=== PATIENT | female | born 1970 | race Caucasian/White ===

== ENCOUNTER → 2020-01-20 10:21 | Outpatient (CLI) | payer BC, SELFPAY ==
--- NOTE | ~2020-01-20 | XR_ITS ---
EXAMINATION: XR chest 2V 01/20/2020 10:37 INDICATION: Cough PROCEDURE: 2 view chest COMPARISON: Comparison to multiple prior studies sequentially, with oldest reviewed study dated . FINDINGS: The lungs are clear. The cardiomediastinal silhouette is within normal limits. There are no pleural effusions. There is no pneumothorax suspected. The lungs are hyperinflated which is cons istent with, but not diagnostic of chronic obstructive pulmonary disease. IMPRESSION: 1: NO ACUTE CARDIOPULMONARY DISEASE. Reviewed, dictated and finalized at location A.
== END ==
PROVIDERS: PCP Family Medicine; Visit Provider Family Medicine
DX: R05 Cough (principal)
CPT/HCPCS: 71046

== ENCOUNTER 2020-03-30 11:48 | Outpatient (CLI) | payer BC, SELFPAY ==
--- NOTE | ~2020-03-30 | CT_ITS ---
EXAMINATION: CT sinus wo con DATE: 03/30/2020 12:39 INDICATION: Chronic congestion. Chronic sinusitis. Chronic sinus infections. TECHNIQUE: Computed tomography (CT) of the paranasal sinuses was performed without contrast. Iterativ e reconstruction technique was employed. Exam dose: 253.85 mGy-cm total exam DLP. COMPARISON: 12/26/2012 CT sinuses FINDINGS: There is leftward bowing of the nasal septum. The nasal turbinates are prominent in size bilaterally. There is intralamellar cell of both middle na demetria turbinates. There are 2 small mucous retention cysts or polyps along the inferior lateral wall of the left maxill sung antrum. The paranasal sinuses otherwise are normally developed and aerated. The ostiomeatal units are patent. There is postoperative change from surgical resection of the uncina te processes bilaterally, bilateral nasal antral windows. The mastoid air cells are normally developed and aerated bilaterally. IMPRESSION: Status post surgical resection of the uncinate processes bilaterally with associated danita al antral windows Small mucous retention cysts or polyps of left maxillary sinus Interlamellar cell of both middle nasal turbinates Reviewed, dictated and finalized at Location A. Reviewed, dictated and finalized at location A. IMPRESSION: Status post surgical resection of the uncinate processes bilateral ly with associated nasal antral windows Small mucous retention cysts or polyps of left maxillary sinus Interlamellar cell of both middle nasal turbinates
== END 2020-03-30 11:49 | disposition home or self-care (01) ==
PROVIDERS: PCP Family Medicine; Visit Provider Otolaryngology
DX: J32.9 Chronic sinusitis, unspecified (principal); K11.6 Mucocele of salivary gland
CPT/HCPCS: 70486

== ENCOUNTER → 2020-05-21 12:15 | Outpatient (CLI) | payer BC, SELFPAY ==
--- NOTE | ~2020-05-21 | XR_ITS ---
XR femur RT min 2V DATE: 05/21/2020 12:52 INDICATION: Right thigh pain TECHNIQUE: AP and lateral views of right femur COMPARISON: None FINDINGS: No fracture or dislocation, periosteal reaction or bone destruction is detected. Normal ali gnment at the right hip and knee joints. IMPRESSION: Negative Reviewed, dictated and finalized at location B. IMPRESSION: Negative
--- NOTE | ~2020-05-21 | XR_ITS ---
EXAMINATION: XR hip RT min 2V DATE: 05/21/2020 12:52 INDICATION: Right hip pain. TECHNIQUE: 2 views of right hip were obtained. COMPARISON: None. FINDINGS: Bone alignment is normal. No fracture. Right hip joint space is normal. IMPRESSION: 1. Normal right hip. Reviewed, dictated and finalized at location A. IMPRESSION: 1. Normal right hip.
== END ==
PROVIDERS: PCP Family Medicine; Visit Provider Family Medicine
DX: M25.551 Pain in right hip (principal); M79.651 Pain in right thigh
CPT/HCPCS: 73502; 73552

== ENCOUNTER → 2020-12-31 09:23 | Outpatient (CLI) | payer BC, SELFPAY ==
--- NOTE | ~2020-12-31 | MM_ITS ---
EXAMINATION: MM screening richard BI w brenda HISTORY: Screening TECHNIQUE: Craniocaudal and mediolateral oblique 3-D tomosynthesis images were obtained and synthetic 2-D images were generated. CAD analysis was submitted and interpreted. COMPARISON: Comparison to multiple prior studies sequentially, with oldest reviewed study dated 07/31. BREAST PARENCHYMAL COMPOSITION: The breasts are heterogeneously dense, which may obscure small masses . FINDINGS: There is no evidence of suspicious mass, calcification, or architectural distortion to sugg est malignancy in either breast. There has been no suspicious interval change. IMPRESSION: 1. No mammographic evidence of malignancy. 2. Recommend routine screening mammography in one year. BI-RADS Category 1: Negative Reviewed, dictated and finalized at location A. EMASON APPRENTICE
== END ==
PROVIDERS: PCP Family Medicine; Visit Provider Family Medicine
DX: Z12.31 Encounter for screening mammogram for malignant neoplasm of breast (principal)
CPT/HCPCS: 77063; 77067

== ENCOUNTER → 2023-02-22 08:16 | Outpatient (CLI) | payer BC, SELFPAY ==
--- NOTE | ~2023-02-22 | CT_ITS ---
EXAMINATION: CT abdomen pelvis wo con DATE: 02/22/2023 08:35 INDICATION: Left lower quadrant abdominal pain TECHNIQUE: Computed tomography (CT) of the abdomen and pelvis was performed without intravenous contr ast. Automated exposure control and iterative reconstruction technique were employed. Exam dose: 178 .99 mGy-cm total exam DLP. COMPARISON: February 06, 2010 gallbladder ultrasound examination FINDINGS: The lung bases are clear. Normal heart size. No pericardial or pleural effusion. Up to approximately 1.4 x 2 cm hypoattenuating lesion of the posterior aspect of the right hepatic lo be. A hyperechoic focus was noted in similar location on February 06, 2010 gallbladder ultrasound examin ation. Additional smaller hypoattenuating lesions are noted in the right and left hepatic lobes. These are l ikely hemangiomas. The gallbladder is contracted. No bile duct or pancreatic duct dilatation. No pancreatic mass lesion or calcification. Normal splenic size. Normal morphology of the adrenal glands. 1.9 cm left renal cyst. The kidneys otherwise appear unremarkable. No urinary tract calculus or hydro ureteronephrosis. The urinary bladder is evacuated. The uterus is presumably surgically absent. Diverticulosis of the colon; no CT evidence of diverticulitis is detected. No bowel obstruction, jed l wall thickening, pneumatosis or intraperitoneal free air. Normal caliber of the abdominal aorta. No intraperitoneal or retroperitoneal or pelvic mass lesion or adenopathy or ascites. No suspicious osteolytic or osteoblastic lesions. IMPRESSION: Probable hepatic hemangiomas; these may be further evaluated by dynamic CT imaging with IV contrast material or MR liver examination 1.9 cm left renal cyst Diverticulosis of the colon Reviewed, dictated and finalized at [facility]. Reviewed, dictated and finalized at location A. IMPRESSION: Probable hepatic hemangiomas; these may be further evaluated by dy namic CT imaging with IV contrast material or MR liver examination 1.9 cm left renal cyst Diverticulosis of the colon
== END ==
PROVIDERS: PCP Family Medicine; Visit Provider Family Medicine
DX: R10.9 Unspecified abdominal pain (principal); N28.1 Cyst of kidney, acquired; K57.30 Diverticulosis of large intestine without perforation or abscess without bleeding
CPT/HCPCS: 74176

== ENCOUNTER → 2023-05-10 10:24 | Outpatient (CLI) | payer BC, SELFPAY ==
--- NOTE | ~2023-05-10 | MM_ITS ---
EXAMINATION: MM screening richard BI w brenda HISTORY: Screening mammogram TECHNIQUE: Craniocaudal and mediolateral oblique 3-D tomosynthesis images were obtained and synthetic 2-D images were generated. CAD analysis was submitted and interpreted. COMPARISON: 12/2020, 01/21/2019, bilateral screening mammogram examinations BREAST PARENCHYMAL COMPOSITION: The breasts are extremely dense, which lowers the sensitivity of mamm ography. FINDINGS: There is no evidence of suspicious mass, calcification, or architectural distortion to sugg est malignancy in either breast. There has been no suspicious interval change. IMPRESSION: 1. No mammographic evidence of malignancy. 2. Recommend routine screening mammography in one year. BI-RADS Category 1: Negative Reviewed, dictated and finalized at location A.
--- NOTE | ~2023-05-10 | DEXA_ITS ---
Bone Density Report Name: JENN RICKS Age: 52 Sex: Female Ethnicity: White Date of : 1970 Indication: postmenopausal osteoporosis; height loss; hysterectomy; Referring Provider: KATHLEEN, ANA Campbell Study: Bone densitometry was performed. Exam Date: May 10, 2023 Accession number: [id number] Bone Density: Region BMD T-score Z-score Classification AP Spine (L1-L4) 0.616 -3.9 -3.0 Osteoporosis Femoral Neck (Left) 0.481 -3.3 -2.4 Osteoporosis Total Hip (Left) 0.612 -2.7 -2.1 Osteoporosis Femoral Neck (Right) 0.475 -3.4 -2.5 Osteoporosis Total Hip (Right) 0.602 -2.8 -2.2 Osteoporosis Total Hip Mean 0.607 -2.8 -2.2 Osteoporosis World Health Organization criteria for BMD impression classify patients as: Normal (T-score at or above -1.0), Osteopenia (T-score between -1.0 and -2.5), or Osteoporosis (T-score at or below -2.5). 10-year Fracture Risk: FRAX not reported because: Some T-score for Spine Total or Hip Total or Femoral Neck at or below -2.5 Previous Exams: Region Exam Age BMD T-score BMD Change BMD Change Date g/cm2 vs Baseline vs Previous AP Spine(L1-L4) 05/10/2023 52 0.616 -3.9 -0.095 -0.095 01/21/2019 48 0.711 -3.1 Total Hip(Left) 05/10/2023 52 0.612 -2.7 -0.004 -0.004 01/21/2019 48 0.616 -2.7 Total Hip(Right) 05/10/2023 52 0.602 -2.8 -0.039* -0.039* 01/21/2019 48 0.641 -2.5 *Denotes significance at 95% confidence level, LSC for AP Spine = 0.022 g/cm2, LSC for Total Hip = 0.027 g/cm2 Clinical Information Provided by Patient: Has the following medical conditions: Hysterectomy Patient maximum height was 64.0 Menopause Age: 25 No regular weight bearing exercise Does not regularly consume dairy products Drinks caffeinated beverages Onset of menses at age 14 Number of children 3 Impression: The patient has osteoporosis, based on the Total Spine T-score. The BMD for the Total Hip(Right) decreased, changing by -0.039 since the last DXA exam. Discussion: HIGH RISK OF FRACTURE. BONE DENSITY IS UNDESIRABLY LOW AT ONE OR MORE SKELETAL SITES, CONSISTENT WITH OSTEOPOROSIS. ALSO, BONE DENSITY IS LOWER THAN EXPECTED FOR AGE AND SEX AT ONE OR MORE SKELETAL SITES; RECOMMEND A DILIGENT SEARCH FOR SECONDARY CAUSES OF BONE LOSS. This patient's lowest T-score meets the World Health Organization's (WHO) criteria for osteoporosis at one or more sites (T-score -2.5 or below). In untreat
== END ==
PROVIDERS: PCP Family Medicine; Visit Provider Family Medicine
DX: Z12.31 Encounter for screening mammogram for malignant neoplasm of breast (principal); M81.0 Age-related osteoporosis without current pathological fracture
CPT/HCPCS: 77063; 77067; 77080

== ENCOUNTER → 2023-06-21 07:56 | Outpatient (CLI) | payer BC, SELFPAY ==
--- NOTE | ~2023-06-21 | XR_ITS ---
EXAMINATION: XR chest 2V 06/21/2023 08:30 INDICATION: Cough PROCEDURE: 2 view chest COMPARISON: Comparison to multiple prior studies sequentially, with oldest reviewed study dated 03/11. FINDINGS: The lungs are clear. The lungs are hyperinflated which is consistent with, but not diagnost ic of chronic obstructive pulmonary disease. The cardiomediastinal silhouette is within normal limits . There are no pleural effusions. There is no pneumothorax suspected. IMPRESSION: 1: NO ACUTE CARDIOPULMONARY DISEASE. Reviewed, dictated and finalized at location B.
== END ==
PROVIDERS: PCP Family Medicine; Visit Provider Family Medicine
DX: R05.9 Cough, unspecified (principal)
CPT/HCPCS: 71046

== ENCOUNTER 2024-01-31 08:05 | Outpatient (CLI) | payer BC, SELFPAY ==
--- NOTE | ~2024-01-31 | CT_ITS ---
EXAMINATION: CT sinus wo con DATE: 01/31/2024 08:21 INDICATION: Acute recurrent sinusitis. History of sinus surgery approximately 20 years ago TECHNIQUE: Computed tomography (CT) of the paranasal sinuses was performed without contrast. Iterativ e reconstruction technique was employed. Exam dose: 260.54 mGy-cm total exam DLP. COMPARISON: 03/30/2020 CT sinuses FINDINGS: Mild leftward bowing of nasal septum. There is prominent soft tissue swelling of the nasal turbinates bilaterally. Intraamellar cell of bot h middle nasal turbinates. There is resection of the uncinate processes and bilateral nasal antral windows. There is a small mucus retention cyst of the inferolateral wall of left maxillary antrum. The paranas al sinuses and mastoid air cells are otherwise normally developed and aerated. IMPRESSION: Resection of uncinate processes and bilateral nasal antral windows Small mucus retention cyst of the inferolateral wall of the left maxillary sinus Intraamellar cell of both middle nasal turbinates Reviewed, dictated and finalized at [facility]. Reviewed, dictated and finalized at location B. IMPRESSION: Resection of uncinate processes and bilateral nasal antral windows Small mucus retention cyst of the inferolateral wall of the left maxillary sinu s Intraamellar cell of both middle nasal turbinates
== END 2024-01-31 08:06 ==
LOC: MICIMG 08:07
PROVIDERS: PCP Student in an Organized Health Care Education/Training Program; Visit Provider Student in an Organized Health Care Education/Training Program
DX: J01.91 Acute recurrent sinusitis, unspecified (principal)
CPT/HCPCS: 70486

== ENCOUNTER 2024-03-20 13:24 | Outpatient (CLI) | payer BC, SELFPAY ==
--- NOTE | ~2024-03-20 | CT_ITS ---
Non-contrast CT scan of the Abdomen and Pelvis Clinical indication: Hematuria Technique: 2.5 mm axial scans were obtained through the abdomen and pelvis without intravenous or or al contrast. Dose reduction technique was used on this scan by utilizing automated exposure control a nd iterative reconstruction technique. The dose-length product (DLP) was 162.79 mGy-cm. COMPARISON: 02/22/2023 Findings: Images through the lung bases reveal no abnormalities. There is no evidence of renal or ureteral calculi. The kidneys and the ureters are nondilated. Stable hypodense hepatic lesions. The spleen, pancreas, gallbladder, and adrenals appear normal. The re is no aortic aneurysm. There is no evidence of bowel obstruction. Images through the pelvis were performed. There is no evidence of ascites or lymphadenopathy. Urinary bladder grossly unremarkable. No pelvic mass seen. No ascites. Impression: No acute abnormality. Stable hypodense hepatic lesions. Reviewed, dictated and finalized at [facility]. Impression: No acute abnormality. Stable hypodense hepatic lesions.
== END 2024-03-20 13:25 ==
LOC: MICIMG 13:25
PROVIDERS: PCP Registered Nurse; Visit Provider Registered Nurse
DX: R31.9 Hematuria, unspecified (principal); R10.2 Pelvic and perineal pain; R10.32 Left lower quadrant pain
CPT/HCPCS: 74176

== ENCOUNTER 2024-03-23 10:34 | Outpatient (CLI) | payer BC, SELFPAY ==
--- NOTE | ~2024-03-23 | US_ITS ---
Right thigh ultrasound CLINICAL HISTORY: Mass TECHNIQUE: Targeted sonographic imaging performed of the area of probable concern. FINDINGS: At the area of palpable concern at the right thigh, there is a 3.2 x 3.3 x 0.8 cm mildly ec hogenic superficial mass which is wider than tall and well-circumscribed. Sonographic appearance is m ost suggestive of lipoma. IMPRESSION: 3.2 x 3.3 x 0.8 cm mass at the right side. Clinical concern, with imaging features most suggestive of lipoma. Correlate with physical exam. MR c ould be pursued for further imaging evaluation, if indicated. Reviewed, dictated and finalized at location M. IMPRESSION: 3.2 x 3.3 x 0.8 cm mass at the right side. Clinical concern, with imaging features most suggestive of lipoma. Correlate wi th physical exam. MR could be pursued for further imaging evaluation, if indica astrid.
== END 2024-03-23 10:35 ==
LOC: MICIMG 10:34
PROVIDERS: PCP Registered Nurse; Visit Provider Registered Nurse
DX: R22.41 Localized swelling, mass and lump, right lower limb (principal)
CPT/HCPCS: 76882

== ENCOUNTER 2024-12-18 10:52 | Outpatient (CLI) | payer BC, SELFPAY ==
--- NOTE | ~2024-12-18 | MM_ITS ---
EXAMINATION: MM screening richard BI w brenda HISTORY: Screening TECHNIQUE: Craniocaudal and mediolateral oblique 3-D tomosynthesis images were obtained and synthetic 2-D images were generated. CAD analysis was submitted and interpreted. COMPARISON: Comparison to multiple prior studies sequentially, with oldest reviewed study dated 01/21. BREAST PARENCHYMAL COMPOSITION: Dense: The breasts are extremely dense, which lowers the sensitivity of mammography. FINDINGS: There is no evidence of suspicious mass, calcification, or architectural distortion to sugg est malignancy in either breast. There has been no suspicious interval change. IMPRESSION: 1. No mammographic evidence of malignancy. 2. Recommend routine screening mammography in one year. BI-RADS Category 1: Negative Reviewed, dictated and finalized at location B. MAKER
== END 2024-12-18 10:53 | disposition home or self-care (01) ==
LOC: MICIMG 10:54
PROVIDERS: PCP Registered Nurse; Visit Provider Registered Nurse
DX: Z12.31 Encounter for screening mammogram for malignant neoplasm of breast (principal)
CPT/HCPCS: 77063; 77067